=== PATIENT | male | born 1990 | race Caucasian/White ===

== ENCOUNTER 2024-03-16 08:41 | Emergency (ER) | payer OTHER, SELFPAY ==
[2024-03-16 08:47] VITALS: BP 95/81
--- NOTE | 2024-03-16 08:51 | EDRN ---
Benny ORTIZ in room w/ pt.
--- NOTE | 2024-03-16 08:55 | ED.GENMED ---
History of Present Illness
General
Chief Complaint: Musculo-Skeletal Complaint
Time Seen by Provider: 03/16/24 08:45
History of Present Illness
History of Present Illness:
33 yo male presents to the Emergency Department for evaluation of a left ankle/foot injury, slipped while walking in wet grass. Visible deformity. Pain well controlled after prehospital fentanyl. No distal numbness.
Review of Systems
Review of Systems
Allergies reviewed?: Yes
All Other Systems: ROS reviewed and negative except as documented in HPI and ROS
Phy Exam
Physical Exam
Physical Exam:
GEN: Well appearing, NAD, WDWN
HEENT: Oral mucosa moist, no scleral icterus
Cardiac: Regular rate
Lung: No respiratory distress, no tachypnea
MSK: Laterally angulated deformity of the left ankle, left dorsalis pedis pulse is 1+, digital sensation intact
Skin: Good color, no pallor or jaundice, no rashes
Neuro: AO x3, moves all extremities freely
Psych: Calm, cooperative
Course
Orders/Labs/Results
Orders:
Orders
03/16/24 08:46
CR Ankle - Left Min 3 Views Urgent
Comment:
Reason For Exam: pain, injury
Vital Signs
Initial and Last Documented VS:
Initial Vital Signs
Pulse Resp BP Pulse Ox
77 16 95/81 100
03/16/24 08:47 03/16/24 08:47 03/16/24 08:47 03/16/24 08:47
Last Documented Vital Signs
Temp Pulse Resp BP Pulse Ox
98.5 F 71 16 134/95 98
03/16/24 09:08 03/16/24 09:08 03/16/24 09:08 03/16/24 09:08 03/16/24 09:08
MDM/Problems Addressed
MDM/Problems Addressed:
X-rays reveal a minimally displaced left trimalleolar fracture. Patient placed in sugar-tong and posterior short leg splint, advised strict nonweightbearing status with close outpatient orthopedic follow-up
*Critical Care Note
Total Time (30-74mins, 75-104mins- exclusive of procedures): Not Applicable
ED Attending Note
-
Portions of this chart may have been created with voice recognition software.� Occasional wrong word or��sound alike� substitutions may have occurred due to the inherent limitations of voice recognition software.
Discharge Plan
Departure
Patient Disposition: Home (Routine Discharge)
Date of Disposition: 03/16/24
Time of Disposition: 09:22
Patient with high blood pressure during this ER visit?: No
Discharge Problem:
Closed left trimalleolar fracture
Instructions: Ankle Fracture (DC)
Prescriptions:
New
oxycodone 5 mg tablet
5 mg PO Q8H PRN (Reason: Pain) Qty: 10 0RF
Referrals:
Aide Kendall I., DO [Active] -
Stand Alone Forms: Return to Work
Activity Restrictions/Additional Instructions:
NO WEIGHT BEARING WHATSOEVER
Use crutches at all times when upright
Elevate, elevate, elevate! Having your leg below the level of the waist will increase blood flow, which will increase pain and potential for blisters on the skin
Follow up with Orthopedics as soon as possible
Use acetaminophen 1000mg every 6 hours in addition to the prescribed pain medicine if needed
Interventions
Interventions:
*Risk Screen - Suicide Last Done: 03/16/24 08:55
*General Assessment Last Done: 03/16/24 08:55
*Neglect/Abuse Screening Last Done: 03/16/24 08:55
ED- Fall Risk Assessment Last Done: 03/16/24 08:55
*ED COVID-19 Vaccine History Last Done: 03/16/24 08:55
ED-Musculoskeletal Assessment Last Done: 03/16/24 08:55
Discharge Date and Time
Print Language: GUINEAN
[2024-03-16 09:08] VITALS: BP 134/95
[2024-03-16 09:10] VITALS: BMI 36.3
--- NOTE | 2024-03-16 09:12 | EDRN ---
Benny ORTIZ and ED PCT Elle in room splinting pt at this time.
== END 2024-03-16 10:30 | disposition home or self-care (01) ==
LOC: EMR 08:41
PROVIDERS: EMERGENCY PHYSICIAN Emergency Medicine
DX: S82.852A Displaced trimalleolar fracture of left lower leg, initial encounter for closed fracture (principal); W01.0XXA Fall on same level from slipping, tripping and stumbling without subsequent striking against object, initial encounter; Y93.01 Activity, walking, marching and hiking
CPT/HCPCS: 99283; 29515; 73610